=== PATIENT | female | born 1965 | race Two or more races ===

== ENCOUNTER 2023-11-18 13:37 | Emergency (ER) | payer OTHER ==
[~2023-11-18] VITALS: Ht 157.5 cm; Wt 65.8 kg
[~2023-11-18 13:37] MED LIST: ATROVASTATIN; CALTRATE; CENTRUM; FEOSOL325 MG; FOLIC ACID; GLIMEPIRIDE4 M1; LASIX20 MG; NAPR500T14 PO; OMEPRAZOLE MAGN20 MG; RELAFEN 500MG; TRIJARDY XR 121 EACH; TRULICITY0.75 MG/0.; TRUVADA 200 MG1 EACH; Tylenol #3 PO; ZESTRIL20 MG; [UNRECOGNIZED DRUG - OTHER]
[2023-11-18] MEDS ORDERED: 0.9 % SODIUM CHLORIDE 1,000 ML IV STA (14:32)
[2023-11-18] MEDS ORDERED: HYOSCYAMINE SULFATE 0.125 MG TAB.SUBL SL ONE (14:45)
[2023-11-18 15:32] LABS: HEMATOCRIT 31.9 % (36.0-45.00); HEMOGLOBIN 10.2 g/dL (12.0-15.00); MEAN CELL VOLUME 89.5 fL (80.00-100.00); MEAN CORPUSCULAR HEMOGLOBIN 28.7 pg (27.00-32.0); MEAN CORPUSCULAR HGB CONC 32.1 g/dl (32.0-36.0); PLATELET COUNT 415 K/uL (150-450); RED BLOOD COUNT 3.57 M/uL (4.00-6.00); RED CELL DISTRIBUTION WIDTH 14.5 % (11.5-14.5)
[2023-11-18 15:51] LABS: CALCIUM 8.8 mg/dL (8.5-10.1); CREATININE SERUM 1.01 mg/dL (0.55-1.02); GFR 56.3; POTASSIUM 3.47 mEq/L (3.5-5.1)
[2023-11-18 16:12] LABS: PH,URINE 5.5 (5.0-8.0); URINE APPEARANCE Clear; URINE BILIRRUBIN Negative (NEGATIVE); URINE BLOOD Negative; URINE COLOR Yellow; URINE LEUKOCYTE Negative; URINE NITRATE Negative; URINE PROTEIN Negative (NEGATIVE); URINE UROBILINOGEN 0.2 E.U./dl
[2023-11-18 16:15] LABS: URINE BACTERIA 47.8 uL (0.0-1933); URINE WBC 3.5 uL (0.0-23.2)
[2023-11-18 16:20] LABS: URINE GLUCOSE >=1000 MG/DL (NEGATIVE)
[2023-11-18] MEDS ORDERED: FAMOTIDINE/PF 20 MG in 0.9 % SODIUM CHLORIDE 8 ML IV PUSH STA (16:28)
[2023-11-18 17:47] LABS: ALBUMIN 2.9 gm/dL (3.4-5.0); BILIRUBIN TOTAL 0.28 mg/dL (0.3-1.2); BILIRUBIN,CONJUGATED 0.12 mg/dL (0.0-0.2); BILIRUBIN,UNCONJUGATED 0.16 mg/dL (0.0-0.6); TOTAL PROTEIN 6.9 gm/dL (6.4-8.2)
[2023-11-18] MEDS ORDERED: PEPCID20 MG PO (20:27)
[2023-11-18] MEDS ORDERED: INTESTINEX680 M1 PO (20:27)
== END 2023-11-18 20:41 | disposition home or self-care (01) ==
LOC: ER 13:38
PROVIDERS: Emergency Medicine; General Practice
DX: K52.9 Noninfective gastroenteritis and colitis, unspecified (principal); I10 Essential (primary) hypertension; E03.8 Other specified hypothyroidism; E11.9 Type 2 diabetes mellitus without complications; Z79.84 Long term (current) use of oral hypoglycemic drugs; Z88.0 Allergy status to penicillin

== ENCOUNTER 2024-05-18 14:19 | Outpatient (CLI) | payer OTHER ==
[~2024-05-18 14:19] MED LIST changes: +INTESTINEX680 M1 PO; +PEPCID20 MG PO
== END 2024-05-18 14:20 | disposition home or self-care (01) ==
LOC: SONOGRAMA 14:19
PROVIDERS: ATTEND Pathology Anatomic Pathology & Clinical Pathology
DX: E04.1 Nontoxic single thyroid nodule (principal); D34 Benign neoplasm of thyroid gland; E07.9 Disorder of thyroid, unspecified